=== PATIENT | male | born 1940 | race Caucasian/White ===

== ENCOUNTER 2017-08-30 16:09 | Emergency (ER) | payer MEDICARE ==
[2017-08-30 16:43] VITALS: BP 134/70
--- NOTE | 2017-08-30 16:47 | UC ---
Skin Complaint HPI - HPI Summary HPI Summary: 77 y/o male presents to the urgent care c/o tick bite on his Rt ankle he noticed this afternoon. Pt reports his dog usually has the tick and he probably got it from him. Pt has had Hx of 4 tick bite in the past. His PCP has done the Lyme Serology which has been negative. Pt removed tick and it was not engorged and it was already . Pt denies TEJADA, joint pain, SOB, chest pain, rash, fever , abdominal pain, N/V/D - History of Current Complaint Chief Complaint: UCSkin Time Seen by Provider: 08/30/17 16:39 Stated Complaint: TICK BITE Hx Obtained From: Patient Onset/Duration: Sudden Onset, Lasting Hours - 12 hrs Skin Exposure Onset/Duration: Hours Ago - 12hrs Timing: Constant Onset Severity: Mild Current Severity: Mild Pain Intensity: 0 Location: Discrete - RT ankle Character: Pruritus, Redness Aggravating Factor(s): Touch Alleviating Factor(s): Nothing Associated Signs & Symptoms: Positive: Rash. Negative: Fever, Chills Related History: Possible Reaction to: Insect - Allergy/Home Medications Allergies/Adverse Reactions: Allergies Allergy/AdvReac Type Severity Reaction Status Date / Time No Known Allergies Allergy Verified 08/30/17 16:44 Home Medications: Home Medications Aloe Vera 100 mg PO BID 08/30/17 [History Confirmed 08/30/17] Saccharomyces Boulardii [Probiotic] 50,000 mg PO DAILY 08/30/17 [History Confirmed 08/30/17] Review of Systems Constitutional: Negative Skin: Rash - RT ankle tick bite Eyes: Negative ENT: Negative Respiratory: Negative Cardiovascular: Negative Gastrointestinal: Negative Genitourinary: Negative Motor: Negative Neurovascular: Negative Musculoskeletal: Negative Neurological: Negative Psychological: Negative Is Patient Immunocompromised?: No All Other Systems Reviewed And Are Negative: Yes PMH/Surg Hx/FS Hx/Imm Hx Previously Healthy: Yes Cardiovascular History: Hypertension GI/ History: Gastroesophageal Reflux Other GI/ History: H. Pyloric - Surgical History Surgical History: Yes Surgery Procedure, Year, and Place: left breast cyst at age 10 yrs - Family History Known Family History: Positive: Cardiac Disease, Hypertension - Social History Occupation: Retired Lives: With Family Alcohol Use: Occasionally Substance Use Type: None Smoking Status (MU): Former Smoker Type: Cigarettes Amount Used/How Often: 1-2 PPD Length of Time of Smoking/Using Tobacco: 39 Years Have You Smoked in the Last Year: No When Did the Patient Quit Smoking/Using Tobacco: 1996 - Immunization History Most Recent Influenza Vaccination: 01/27/16 Most Recent Tetanus Shot: 2014 Most Recent Pneumonia Vaccination: "Quite some time ago" Physical Exam - Summary Physical Exam Summary: Vital Signs Reviewed: Yes General: well developed, well nourished male sitting in the examining table w/ o any apparent distress. Eyes: Positive: Conjunctiva Clear - PERRLA, EOMI ENT: Positive: Normal ENT inspection, Hearing grossly normal, Pharynx normal, TMs normal Neck: Positive: Supple, Nontender, No Lymphadenopathy Respiratory: Positive: Chest nontender, Lungs clear, Normal breath sounds Cardiovascular: Positive: RRR, No Murmur, Pulses Normal Abdomen Description: Positive: Nontender, No Organomegaly, Soft. Negative: CVA Tenderness (R), CVA Tenderness (L) Bowel Sounds: Positive: Present Musculoskeletal: Positive: Strength Intact, ROM Intact, No Edema Neurological Exam: Normal Psychological Exam: Normal Skin: Positive: rashes - lateral RT malleolus with tick bite with surrounding erythema, non tender to palpation. tick no longer present, no swelling or drainage observed. Triage Information Reviewed: Yes Vital Signs: Initial Vital Signs Temp 98.5 F 08/30/17 16:34 Pulse 72 08/30/17 16:34 Resp 16 08/30/17 16:34 BP 134/70 08/30/17 16:34 Pulse Ox 98 08/30/17 16:34 Course/Dx - Course Course Of Treatment: 77 y/o male presents to the urgent care c/o tick bite on his Rt ankle he noticed this afternoon. Pt reports his dog usually has the tick and he probably got it from him. Pt has had Hx of 4 tick bite in the past. His PCP has done the Lyme Serology which has been negative. Pt removed tick and it was not engorged and it was already . Pt denies TEJADA, joint pain, SOB, chest pain, rash, fever, abdominal pain, N/V/D. Hx obtained. PE: lateral RT malleolus with tick bite with surrounding erythema, non tender to palpation. tick no longer present on examination. Antibiotic prophylaxis with Doxycycline given to the patient to prevent lyme Disease.. Pt tolerated well medication. Pt advised to observe the area for the development or Erythema Migrans for upto 30 days following exposure. Advised if he develops fever or erythema Migrans to return to the clinic or PCP for further treatment .Pt understood and agreed with plan of care. - Differential Diagnoses - Skin Complaint Differential Diagnoses: Abscess, Cellulitis, Contact Dermatitis, Local Allergic Reaction, Tick Born Illness, Other - insect bite, bee sting - Diagnoses Provider Diagnoses: 1- Tick bite Discharge - Sign-Out/Discharge Documenting (check all that apply): Discharge/Admit/Transfer - D/C home - Discharge Plan Condition: Stable Disposition: HOME Patient Education Materials: Tick Bite (ED) Referrals: Darlene MCLEOD,Jorge Thornton [Medical Doctor] - If Needed Drew Hannon MD [Primary Care Provider] - 1 Week Additional Instructions: 1- Please observe the area for the development or Erythema Migrans for upto 30 days following exposure. Components of the tick saliva can cause transient erythema that should not be confused with Erythema Migrans. If you develop the bull's eye rash, fever, joint pains please return to the urgent care or f/u with your PCP for further management. 2-Antibiotic prophylaxis with Doxycycline was given to you today to prevent lyme Disease. Lyme serology can be drawn in 2 weeks with your PCP to r/o Lyme disease since there is probability of negative results at early exposure. - Billing Disposition and Condition Condition: STABLE Disposition: HOME
[2017-08-30] MEDS ORDERED: DOXYcycline CAP(*) 100 MG PO ONE (17:01)
== END 2017-08-30 17:11 | disposition home or self-care (01) ==
LOC: UCCORT 16:09
DX: S90.561A Insect bite (nonvenomous), right ankle, initial encounter (principal); W57.XXXA Bitten or stung by nonvenomous insect and other nonvenomous arthropods, initial encounter; Y93.9 Activity, unspecified; Y92.9 Unspecified place or not applicable
CPT/HCPCS: 99212; A9270-GY; G0463

== ENCOUNTER 2019-04-04 08:17 | Emergency (ER) | payer MEDICARE ==
--- OUTSIDE RECORDS SUMMARY | 2019-04-04 08:26 | XMS REPORT | Continuity of Care Document ---
:1940 External Reference #:[id number] Author Name Valerio Canales MD (transmitted by agent of provider Lacie Root) Address [address] [place] [address] Care Team Providers Name Role Phone Drew Hannon MD - Family Medicine Care Team Information Computer Training Specialist [phone] Problems Active Problems Provider Date Benign essential hypertension Doug Kamara MD Onset: 04/21/2016 Abdominal pain Doug Kamara MD Onset: 04/04/2017 Esophagitis, unspecified Doug Kamara MD Onset: 08/11/2016 Helicobacter pylori Doug Kamara MD Onset: 08/11/2016 Gastroduodenitis Doug Kamara MD Onset: 08/11/2016 Digestive symptom Doug Kamara MD Onset: 04/21/2016 Flatulence, eructation and gas pain Doug Kamara MD Onset: 04/21/2016 Early satiety Doug Kamara MD Onset: 04/21/2016 Social History Type Date Description Comments Sex Unknown Tobacco Use Start: Unknown End: Former Cigarette Smoker quit 20 years ago Unknown Smoking Status Reviewed: 08/01/18 Former Cigarette Smoker quit 20 years ago ETOH Use Occasionally consumes alcohol Tobacco Use Start: Unknown End: Patient is a former smoker Recreational Drug Use Denies Drug Use Allergies, Adverse Reactions, Alerts Description No Known Drug Allergies Medications Active Medications SIG Qnty Indications Ordering Date Provider Amlodipine Besylate 1 by mouth every Heather Barber MD 06/06/2018 5mg day Tablets Spironolactone 1 by mouth every 30tabs Brittani Piedra 06/06/2018 25mg day ILIA Jalloh, Tablets [employer] Losartan 1 by mouth every Unknown Potassium/Hydrochlorot day hiazide 100-25mg Tablets L-Lysine 1 by mouth every Unknown 500mg Capsules day Aspir-Low 1 by mouth every Unknown 81mg Tablets DR day Fluticasone Propionate 2 sprays each nare Mathew, daily GALDINO Latif 50mcg/Act Suspension Vitamin D3 1 tab once a day Unknown 400Unit Tablets Azelastine HCL (Nasal) 2 sprays Unknown intranasal once a 0.15% Solution day Aloe Vera twice daily Unknown 50mg Capsules Metamucil Smooth 1 Tablespoon in am Unknown Texture and 1 tablespoon 28.3% Powder in pm Immunizations Description No Information Available Vital Signs Date Vital Result Comment 01/27/2019 8:27am BP Systolic Sitting Left Arm 122 mmHg BP Diastolic Sitting Left Arm 68 mmHg Heart Rate 64 /min Respiratory Rate 16 /min Height 72 inches 6'0" Weight 235.00 lb BMI (Body Mass Index) 31.9 kg/m2 BSA (Body Surface Area) 2.28 m2 [place] body weight in kilograms 81 kg O2 Saturation Level with Exercise 96 % 08/01/2018 8:56am BP Systolic Sitting Left Arm 140 mmHg BP Diastolic Sitting Left Arm 80 mmHg Heart Rate 70 /min Respiratory Rate 16 /min Height 72 inches 6'0" Weight 232.00 lb BMI (Body Mass Index) 31.5 kg/m2 BSA (Body Surface Area) 2.27 m2 [place] body weight in kilograms 81 kg O2 % BldC Oximetry 96 % Ra Results Description No Information Available Procedures Date Code Description Status 05/27/2018 84340708 Colonoscopy Completed 09/09/2013 [id number] Colonoscopy Completed 02/04/2008 [id number] Colonoscopy Completed 12/29/2004 [id number] Colonoscopy Completed 02/13/2000 [id number] Colonoscopy Completed Medical Devices Description No Information Available Encounters Type Date Location Provider Dx Diagnosis Office Visit 01/27/2019 Cardiology Office Nasreen Alan R06.02 Shortness of 8:20a B., PA breath I71.2 Thoracic aortic aneurysm, without rupture I10 Essential (primary) hypertension G47.33 Obstructive sleep apnea (adult) (pediatric) R00.1 Bradycardia, unspecified I35.0 Nonrheumatic aortic (valve) stenosis Assessments Date Code Description Provider 01/27/2019 R06.02 Shortness of breath Nasreen Alan, PA 01/27/2019 I71.2 Thoracic aortic aneurysm, without rupture Nasreen Alan, PA 01/27/2019 I10 Essential (primary) hypertension Nasreen Alan, PA 01/27/2019 G47.33 Obstructive sleep apnea (adult) (pediatric) Nasreen Alan, PA 01/27/2019 R00.1 Bradycardia, unspecified Nasreen Alan, PA 01/27/2019 I35.0 Nonrheumatic aortic (valve) stenosis Nasreen Alan PA Plan of Treatment Future Appointment(s):02/25/2019 8:20 am - Nasreen Alan PA at [facility]/05/2019 8:30 am - Valerio Canales MD at 06/09/2019 9: 45 am - Mateus Clark PA at [facility]/28/2019 - Nasreen Alan, PAR06.02 Shortness of breathNew Orders:Nuclear Stress Test, Cardiolite, Exercise , Scheduled: 02/13/19Comments:We will evaluate the patient's ischemic potential with a nuclear stress test.I71.2 Thoracic aortic aneurysm, without ruptureNew Xrays:CT, Chest W Out Contrast, Ordered: 01/27/19Comments:Will re-evaluate with CT chest.I10 Essential (primary) hypertensionComments:BP goal is <130/80 mmHg. No changes.G47.33 Obstructive sleep apnea (adult) (pediatric)Comments: Followed by Dr. Dinero.R00.1 Bradycardia, unspecifiedComments:Monitor. No changes.I35.0 Nonrheumatic aortic (valve) stenosisComments:Monitor.AllFollow up: After testing Please obtain last labs from PCP Functional Status Functional Condition Comment Date Status Independent with all ADL's Active Mental Status Description No Information Available Referrals Description No Information Available
[2019-04-04 08:47] VITALS: BP 143/74
--- NOTE | 2019-04-04 09:36 | UC ---
Respiratory Complaint HPI - HPI Summary HPI Summary: 79-year-old male comes in with a chief complaint of cough and chest congestion for 3-4 days. Does have some sinus congestion and postnasal drip. Feels like he has congestion in his chest. Is been coughing a lot and he does get some sputum up on occasion. He does have sleep apnea and uses CPAP. He's tried some [id number] medicines which are not helping much with cough. No history of COPD or asthma. - History of Current Complaint Chief Complaint: UCGeneralIllness Stated Complaint: COUGH Time Seen by Provider: 04/04/19 09:23 Pain Intensity: 0 - Allergies/Home Medications Allergies/Adverse Reactions: Allergies Allergy/AdvReac Type Severity Reaction Status Date / Time No Known Allergies Allergy Verified 04/04/19 08:47 Home Medications: Home Medications Azelastine 0.1% Nasal (NF) [Astepro 0.1% Nasal (NF)] 0.1 % NA BID 04/04/19 [ History Confirmed 04/04/19] Fluticasone NASAL SPRAY 50MCG* [Flonase NASAL SPRAY 50MCG*] 2 spray BOTH NARES BID 04/04/19 [History Confirmed 04/04/19] Spironolactone TAB* [Aldactone TAB*] 25 mg PO DAILY 04/04/19 [History Confirmed 04/04/19] PMH/Surg Hx/FS Hx/Imm Hx Previously Healthy: Yes - SLEEP APNEA Cardiovascular History: Hypertension - Surgical History Surgical History: Yes Surgery Procedure, Year, and Place: left breast cyst at age 10 yrs - Family History Known Family History: Positive: Cardiac Disease, Hypertension - Social History Alcohol Use: Occasionally Substance Use Type: None Smoking Status (MU): Former Smoker Type: Cigarettes Amount Used/How Often: 1-2 PPD Length of Time of Smoking/Using Tobacco: 38 yrs Have You Smoked in the Last Year: No When Did the Patient Quit Smoking/Using Tobacco: 1996 - Immunization History Most Recent Influenza Vaccination: 01/27/16 Most Recent Tetanus Shot: 2014 Most Recent Pneumonia Vaccination: "Quite some time ago" Review of Systems All Other Systems Reviewed And Are Negative: Yes Constitutional: Positive: Other - SEE HPI Skin: Positive: Negative Eyes: Positive: Negative ENT: Positive: Sore Throat, Nasal Discharge, Sinus Congestion Respiratory: Positive: Cough, Other - SEE HPI Cardiovascular: Positive: Negative Gastrointestinal: Positive: Negative Motor: Positive: Negative Neurovascular: Positive: Negative Musculoskeletal: Positive: Negative Neurological: Positive: Negative Psychological: Positive: Negative Is Patient Immunocompromised?: No Physical Exam Triage Information Reviewed: Yes Appearance: No Pain Distress, Well-Nourished, Ill-Appearing - MILD Vital Signs: Initial Vital Signs Temp 98.7 F 04/04/19 08:40 Pulse 74 04/04/19 08:40 Resp 18 04/04/19 08:40 BP 143/74 04/04/19 08:40 Pulse Ox 96 04/04/19 08:40 Vital Signs Reviewed: Yes Eye Exam: Normal Eyes: Positive: Conjunctiva Clear ENT: Positive: Pharyngeal erythema, Nasal congestion, Nasal drainage, TMs normal Neck: Positive: Supple Respiratory: Positive: No respiratory distress, Rhonchi Cardiovascular: Positive: RRR Musculoskeletal: Positive: Strength Intact, ROM Intact Neurological: Positive: Alert, Muscle Tone Normal Psychological: Positive: Age Appropriate Behavior Skin Exam: Normal Respiratory Course/Dx - Course Course Of Treatment: DISCUSSED VIRAL VERSES BACTERIAL INFECTIONS AND THE ROLE OF ANTIBIOTICS. THE PATIENT PREFERS TO BE ON ANTIBIOTICS AT THIS TIME. We discussed chest x-ray. At this time clinically is not apparent that the patient has a pneumonia therefore at this time we'll hold off of the chest x- ray however the patient is not improving or worsening reconsider getting a chest x-ray. Patient will follow-up his primary care doctor get reevaluated sooner if worse or any questions or concerns. - Differential Dx/Diagnosis Provider Diagnosis: Bronchitis Discharge ED - Sign-Out/Discharge Documenting (check all that apply): Patient Departure All imaging exams completed and their final reports reviewed: No Studies - Discharge Plan Condition: Stable Disposition: HOME Prescriptions: Albuterol HFA INHALER* [Ventolin HFA Inhaler*] 2 puff INH Q4H PRN #1 mdi PRN Reason: Wheezing Azithromyxin ULISSES (NF) [Z-Ulisses (Zithromax) 250 mg tabs #6] 2 tab PO .TODAY, THEN 1 DAILY #6 tab Benzonatate CAP* [Tessalon 100 MG CAP*] 100 mg PO TID PRN #20 cap PRN Reason: Cough Patient Education Materials: Acute Bronchitis (ED) Referrals: Drew Hannon MD [Primary Care Provider] - Additional Instructions: FOLLOW UP WITH YOUR DOCTOR IF NOT COMPLETELY IMPROVED. GET REEVALUATED SOONER IF NOT IMPROVING OR WORSE OR ANY QUESTIONS OR CONCERNS. - Billing Disposition and Condition Condition: STABLE Disposition: Home
== END 2019-04-04 09:45 | disposition home or self-care (01) ==
LOC: UCCORT 08:17
DX: J40 Bronchitis, not specified as acute or chronic (principal); R09.81 Nasal congestion; I10 Essential (primary) hypertension; Z87.891 Personal history of nicotine dependence; Z82.49 Family history of ischemic heart disease and other diseases of the circulatory system
CPT/HCPCS: 99212; G0463